=== PATIENT | female | born 1995 | race African-American/Black ===

== ENCOUNTER 2016-08-27 13:09 | Emergency (ER) | payer SELFPAY ==
[2016-08-27] MEDS ORDERED: traMADol HCl 50 MG TAB ONE (13:28)
[2016-08-27] MEDS ORDERED: AMOXicillin 250 MG CAP ONE (13:28)
== END 2016-08-27 13:30 | disposition home or self-care (01) ==
LOC: MADERS 13:09
DX: K04.7 Periapical abscess without sinus (principal); F17.210 Nicotine dependence, cigarettes, uncomplicated
CPT/HCPCS: 99282

== ENCOUNTER 2017-04-22 10:52 | Emergency (ER) | payer SELFPAY | END 2017-04-22 12:15 | disposition home or self-care (01) | LOC: MADERS 10:52 | DX: J20.9 Acute bronchitis, unspecified (principal); F17.210 Nicotine dependence, cigarettes, uncomplicated | CPT/HCPCS: 99283 ==

== ENCOUNTER 2017-07-17 14:47 | Emergency (ER) | payer SELFPAY ==
[2017-07-17] MEDS ORDERED: Metoclopramide HCl 10 MG/2 ML VIAL ONE (16:29)
[2017-07-17] MEDS ORDERED: Diphenoxylate HCl/Atropine Tablet ONE (16:29)
[2017-07-17] MEDS ORDERED: Ondansetron ODT 4 MG TAB ONE (16:29)
[2017-07-17] MEDS ORDERED: Ketorolac Tromethamine 30 MG/ML VIAL ONE (16:29)
[2017-07-17 16:33] LABS: Bilirubin Small (Negative); Blood, Urine Negative (Negative); Glucose, Urine (Dipstick) Negative (Negative); Leukocyte Trace (Negative); Nitrite Negative (Negative); Protein, Urine (Dipstick) 100 mg/dL (Neg-Trace); pH, Urine 5.5 (5.0-9.0)
[2017-07-17 16:35] LABS: Clarity Cloudy (Clear)
[2017-07-17 16:37] LABS: RBC/HPF None Seen HPF (0-3)
[2017-07-17 16:38] LABS: Bacteria/HPF 1+ HPF (None Seen); Crystals/HPF 2+ AMORPH URATES HPF (Negative)
== END 2017-07-17 17:16 | disposition home or self-care (01) ==
LOC: MADERS 14:47
DX: N39.0 Urinary tract infection, site not specified (principal); F17.210 Nicotine dependence, cigarettes, uncomplicated
CPT/HCPCS: 81001; 87086; 99284; J1885; J2765; Q0162

== ENCOUNTER 2019-07-30 19:27 | Emergency (ER) | payer SELFPAY ==
[2019-07-30] MEDS ORDERED: Acetaminophen/Codeine 30-300mg Tablet ONE (19:57)
[2019-07-30] MEDS ORDERED: Amoxicillin/Potassium Clav 500 MG TAB ONE (19:58)
[2019-07-30] MEDS ORDERED: Ibuprofen 800 MG TAB ONE (19:58)
== END 2019-07-30 20:05 | disposition home or self-care (01) ==
LOC: MADERS 19:27
DX: K04.7 Periapical abscess without sinus (principal); K02.9 Dental caries, unspecified; F17.210 Nicotine dependence, cigarettes, uncomplicated
CPT/HCPCS: 99282

== ENCOUNTER 2022-10-27 22:02 | Emergency (ER) | payer BC, SELFPAY | END 2022-10-27 22:35 | disposition home or self-care (01) | LOC: MADERS 22:02 | DX: J06.9 Acute upper respiratory infection, unspecified (principal) | CPT/HCPCS: 99283 ==

== ENCOUNTER 2023-01-19 17:18 | Emergency (ER) | payer OTHER, SELFPAY ==
[2023-01-19 18:19] LABS: Pregnancy Test - Urine (BHCG) Negative (Negative); Pregu Control Background? CLEAR/WHITE (CLR/WHITE); Pregu Control Bar Appear? YES (CONTROL BAR); Specific Gravity 1.015 (1.002-1.036)
== END 2023-01-19 20:56 | disposition home or self-care (01) ==
LOC: MADERS 17:18
DX: J06.9 Acute upper respiratory infection, unspecified (principal); Z20.822 Contact with and (suspected) exposure to COVID-19
CPT/HCPCS: 81025; 87635; 87804; 99283

== ENCOUNTER 2024-10-12 15:56 | Emergency (ER) | payer OTHER, SELFPAY ==
[2024-10-12] MEDS ORDERED: Acetaminophen 500 MG TAB ONE (16:26)
[2024-10-12 16:39] LABS: #Basophils 0.2 thou/uL (0.0-0.2); #Eosinophils 0.1 thou/uL (0.0-0.7); #Lymphocytes 2.9 thou/uL (1.20-3.40); #Monocytes 0.6 thou/uL (0.11-0.59); #Neutrophils 5.2 thou/uL (1.40-6.50); %Basophils 2.2 % (0.0-1.0); %Eosinophils 1.1 % (0.0-10.0); %Lymphocytes 32.2 % (21.0-51.0); %Monocytes 6.7 % (0.0-10.0); %Neutrophils 57.8 % (42.0-75.0); Hematocrit 39.2 % (36.0-47.0); Hemoglobin 12.2 g/dL (12.0-16.0); Mean Corpuscular Hemoglobin 27.9 pg (27.0-31.0); Mean Corpuscular Volume 90.1 fl (78.0-98.0); Platelet Count 344 10x3/uL (130-400); Red Blood Cell (RBC) Count 4.35 mill/uL (4.20-5.40); White Blood Cell (WBC) Count 9.0 10x3/uL (4.8-10.8)
[2024-10-12 16:47] LABS: INR-International Normal Ratio 1.1; PTT 28.4 sec (22.9-36.1); Prothrombin Time 14.0 sec (12.0-14.7)
[2024-10-12 16:52] LABS: BHCG - Serum Negative (NEGATIVE); Pregs Control Background? CLEAR/WHITE (CLR/WHITE); Pregs Control Bar Appear? YES (CONTROL BAR)
[2024-10-12 16:58] LABS: ALT (SGPT) 9 U/L (Less than 34); AST (SGOT) 19 U/L (11-34); Albumin 4.2 g/dL (3.1-4.5); Alkaline Phosphatase 67 U/L (40-110); Anion Gap 17 mmol/L (10-20); BUN (Urea Nitrogen) 14 mg/dL (7.0-18.7); Bilirubin, Total 0.4 mg/dL (0.3-1.2); Calc. Creatinine Clearance 0 mL/min (70-130); Calcium 9.3 mg/dL (7.8-10.44); Carbon Dioxide 22 mmol/L (22-29); Chloride 107 mmol/L (98-107); Globulin 3.9 g/dL (2.4-3.5); Glucose 91 mg/dL (70-105); Potassium 3.8 mmol/L (3.5-5.1); Sodium 142 mmol/L (136-145)
== END 2024-10-12 18:21 | disposition home or self-care (01) ==
LOC: MADERS 15:56
DX: S39.012A Strain of muscle, fascia and tendon of lower back, initial encounter (principal); S80.12XA Contusion of left lower leg, initial encounter; S09.90XA Unspecified injury of head, initial encounter; V49.49XA Driver injured in collision with other motor vehicles in traffic accident, initial encounter
CPT/HCPCS: 36415; 70450; 71045; 72100; 80053; 84703; 85025; 85610; 85730